=== PATIENT | male | born 1950 | race Caucasian/White ===

== ENCOUNTER 2018-11-22 01:36 | Inpatient (IN) ==
[2018-11-22] MEDS ORDERED: ASPIRIN 325 MG TABLET PO STA (02:14)
[2018-11-22] MEDS ORDERED: ALBUTEROL/IPRATROPIUM 3 ML NEB RESP TX STA (02:16)
[2018-11-22] MEDS ORDERED: methylPREDNISolone SOD SUC 125 MG/2 ML VIAL IV STA (02:16)
[2018-11-22 02:50] LABS: Basophils # 0.1 10*3/uL (0.0-0.2); Basophils % 0.6 % (0.0-0.8); Eosinophils # 0.1 10*3/uL (0.0-0.87); Eosinophils % 1.3 % (0.00-10.9); Hematocrit 46.1 VOL% (42.0-52.0); Hemoglobin 15.3 GM/DL (14.0-18.0); Immature Granulocytes % 0.6 %; Immature Granulocytes Absolute 0.05 #; Lymphocytes # 1.8 10*3/uL (1.4-4.0); Lymphocytes % 23.1 % (21.2-54.2); Mean Corpuscular HGB Conc 33.2 GM/DL (32-36); Mean Corpuscular Hemoglobin 28 PG (27-34); Mean Corpuscular Volume 84.3 FL (87-102); Mean Platelet Volume 10.2 FL (9.6-12.0); Monocytes # 0.6 10*3/uL (0.11-0.8); Monocytes % 8.2 % (1.7-12.7); Neutrophils # 5.2 10*3/uL (1.4-7.4); Neutrophils % 66.2 % (38.7-73.9); Platelet Count 170 T/CUMM (130-400); Red Blood Count 5.47 MC/CUMM (3.8-5.5); Red Cell Distribution Width 14.6 % (9.3-17.3); White Blood Count 7.8 T/CUMM (4-12)
[2018-11-22 03:30] LABS: Alanine Aminotransferase 27 U/L (16-61); Albumin 3.6 G/DL (3.4-5.0); Alkaline Phosphatase 66 U/L (45-117); Aspartate Amino Transferase 22 U/L (0-37); Bilirubin,Total < 0.39 MG/DL (0.2-1.0); Blood Urea Nitrogen 13 MG/DL (7-18); Calcium 8.5 MG/DL (8.5-10.1); Glucose 222 MG/DL (74-106); Osmolality,Calculated 281.7 MOS/KG (273-304); Sodium 138 MMOL/L (136-145); Total Protein 7.4 G/DL (6.4-8.3)
[2018-11-22] MEDS ORDERED: FUROSEMIDE 40 MG/4 ML VIAL IV STA (03:54)
[2018-11-22] MEDS ORDERED: ONDANSETRON 4 MG/2 ML VIAL IV PRN (05:00)
[2018-11-22] MEDS ORDERED: DEXTROSE 50% 25 GM/50 ML VIAL IV PRN (05:00)
[2018-11-22] MEDS ORDERED: ACETAMINOPHEN 325 MG TABLET PO PRN (05:00)
[2018-11-22] MEDS ORDERED: ALBUTEROL 2.5 MG/3 ML NEB RESP TX PRN (05:00)
[2018-11-22] MEDS ORDERED: GLUCAGON 1 MG VIAL IM PRN (05:00)
[2018-11-22] MEDS: INSULIN REGULAR 100 UNIT/ML SUBCUT SCH ×4 (07:20→20:47)
[2018-11-22 07:55] LABS: Risk Ratio 5.3
[2018-11-22] MEDS: ALBUTEROL/IPRATROPIUM 3 ML NEB RESP TX SCH ×3 (07:57→19:00)
[2018-11-22] MEDS ORDERED: methylPREDNISolone SOD SUC 40 MG/1 ML VIAL IV SCH (08:30)
[2018-11-22] MEDS: ENOXAPARIN 40 MG/0.4 ML SYRINGE SUBCUT SCH (08:52)
[2018-11-22] MEDS: PANTOPRAZOLE 40 MG TABLET PO SCH (08:58)
[2018-11-22] MEDS ORDERED: predniSONE 20 MG TABLET PO SCH (09:00)
[2018-11-22] MEDS: BUDESONIDE 0.5 MG/2 ML NEB RESP TX SCH ×2 (09:10→19:00)
[2018-11-22] MEDS: BISOPROLOL 5 MG TABLET PO SCH (17:06)
[2018-11-22] MEDS: ISOSORBIDE MONONITRATE 30 MG TABLET PO SCH (17:06)
[2018-11-22] MEDS: metFORMIN 500 MG TABLET PO SCH (17:06)
[2018-11-22] MEDS ORDERED: INFLUENZA VIRUS VACCINE 0.5 ML SYRINGE IM ONE (18:00)
[2018-11-22] MEDS: MONTELUKAST 10 MG TABLET PO SCH (20:47)
[2018-11-23] MEDS: ALBUTEROL/IPRATROPIUM 3 ML NEB RESP TX SCH ×4 (00:29→19:10)
[2018-11-23] MEDS: BUDESONIDE 0.5 MG/2 ML NEB RESP TX SCH ×2 (07:33→19:10)
[2018-11-23] MEDS: INSULIN REGULAR 100 UNIT/ML SUBCUT SCH ×4 (07:44→20:30)
[2018-11-23] MEDS: ASPIRIN EC 81 MG TABLET PO SCH (10:16)
[2018-11-23] MEDS: PANTOPRAZOLE 40 MG TABLET PO SCH (10:16)
[2018-11-23] MEDS: FENOFIBRATE 145 MG TABLET PO SCH (10:16)
[2018-11-23] MEDS: metFORMIN 500 MG TABLET PO SCH ×2 (10:18→16:55)
[2018-11-23] MEDS: BISOPROLOL 5 MG TABLET PO SCH (10:18)
[2018-11-23] MEDS: ISOSORBIDE MONONITRATE 30 MG TABLET PO SCH (10:18)
[2018-11-23] MEDS: ENOXAPARIN 40 MG/0.4 ML SYRINGE SUBCUT SCH (10:19)
[2018-11-23] MEDS: methylPREDNISolone SOD SUC 40 MG/1 ML VIAL IV SCH ×2 (10:20→17:52)
[2018-11-23] MEDS: guaiFENesin/CODEINE 5 ML LIQUID PO PRN ×2 (10:23→20:29)
[2018-11-23] MEDS: ENALAPRIL 2.5 MG TABLET PO SCH (12:55)
[2018-11-23] MEDS: MONTELUKAST 10 MG TABLET PO SCH (20:28)
[2018-11-23] MEDS: SIMVASTATIN 20 MG TABLET PO SCH (20:29)
[2018-11-23] MEDS: ZALEPLON 5 MG CAPSULE PO PRN (20:30)
[2018-11-24] MEDS: ALBUTEROL/IPRATROPIUM 3 ML NEB RESP TX SCH ×5 (00:40→19:33)
[2018-11-24] MEDS: methylPREDNISolone SOD SUC 40 MG/1 ML VIAL IV SCH ×2 (02:14→10:41)
[2018-11-24 06:10] LABS: Basophils % 0.1 % (0.0-0.8); Hematocrit 43.8 VOL% (42.0-52.0); Hemoglobin 14.6 GM/DL (14.0-18.0); Immature Granulocytes % 1.4 %; Immature Granulocytes Absolute 0.11 #; Lymphocytes # 0.5 10*3/uL (1.4-4.0); Lymphocytes % 6.5 % (21.2-54.2); Mean Corpuscular HGB Conc 33.3 GM/DL (32-36); Mean Corpuscular Hemoglobin 28 PG (27-34); Mean Corpuscular Volume 84.1 FL (87-102); Mean Platelet Volume 11.2 FL (9.6-12.0); Monocytes # 0.2 10*3/uL (0.11-0.8); Monocytes % 2.6 % (1.7-12.7); Neutrophils # 6.9 10*3/uL (1.4-7.4); Neutrophils % 89.4 % (38.7-73.9); Platelet Count 181 T/CUMM (130-400); Red Blood Count 5.21 MC/CUMM (3.8-5.5); Red Cell Distribution Width 14.7 % (9.3-17.3); White Blood Count 7.7 T/CUMM (4-12)
[2018-11-24 06:35] LABS: Calcium 8.6 MG/DL (8.5-10.1); Osmolality,Calculated 279.1 MOS/KG (273-304); Potassium 4.2 MMOL/L (3.5-5.1)
[2018-11-24] MEDS: BUDESONIDE 0.5 MG/2 ML NEB RESP TX SCH ×2 (07:20→19:35)
[2018-11-24] MEDS ORDERED: REGADENOSON 0.4 MG/5 ML SYRINGE IV ONE (10:13)
[2018-11-24] MEDS: INSULIN REGULAR 100 UNIT/ML SUBCUT SCH ×4 (10:38→22:05)
[2018-11-24] MEDS: metFORMIN 500 MG TABLET PO SCH (10:39)
[2018-11-24] MEDS: ENOXAPARIN 40 MG/0.4 ML SYRINGE SUBCUT SCH (10:39)
[2018-11-24] MEDS: ENALAPRIL 2.5 MG TABLET PO SCH (10:52)
[2018-11-24] MEDS: BISOPROLOL 5 MG TABLET PO SCH (10:52)
[2018-11-24] MEDS: FENOFIBRATE 145 MG TABLET PO SCH (10:52)
[2018-11-24] MEDS: PANTOPRAZOLE 40 MG TABLET PO SCH (10:52)
[2018-11-24] MEDS: ASPIRIN EC 81 MG TABLET PO SCH (10:53)
[2018-11-24] MEDS: ISOSORBIDE MONONITRATE 30 MG TABLET PO SCH (10:53)
[2018-11-24] MEDS ORDERED: MAGNESIUM SULF RIDER 2 GM in PREMIX 1 EACH IV PRN (12:21)
[2018-11-24] MEDS: SODIUM CHLORIDE 0.9% 1,000 ML IV SCH (12:44)
[2018-11-24] MEDS: guaiFENesin/CODEINE 5 ML LIQUID PO PRN (17:33)
[2018-11-24] MEDS ORDERED: methylPREDNISolone SOD SUC 40 MG/1 ML VIAL IV SCH (21:00)
[2018-11-24] MEDS: MONTELUKAST 10 MG TABLET PO SCH (21:55)
[2018-11-24] MEDS: SIMVASTATIN 20 MG TABLET PO SCH (21:55)
[2018-11-24] MEDS: ZALEPLON 5 MG CAPSULE PO PRN (22:04)
[2018-11-25] MEDS ORDERED: diphenhydrAMINE CAP 25 MG CAPSULE PO ONE (00:01)
[2018-11-25] MEDS: SODIUM CHLORIDE 0.9% 1,000 ML IV SCH ×4 (01:04→20:57)
[2018-11-25] MEDS: ALBUTEROL/IPRATROPIUM 3 ML NEB RESP TX SCH ×5 (01:15→19:16)
[2018-11-25] MEDS ORDERED: DIAZEPAM 5 MG TABLET PO ONE (05:00)
[2018-11-25 05:50] LABS: Basophils % 0.3 % (0.0-0.8); Hematocrit 44.3 VOL% (42.0-52.0); Hemoglobin 14.7 GM/DL (14.0-18.0); Immature Granulocytes % 1.4 %; Immature Granulocytes Absolute 0.18 #; Lymphocytes # 0.5 10*3/uL (1.4-4.0); Lymphocytes % 4.1 % (21.2-54.2); Mean Corpuscular HGB Conc 33.2 GM/DL (32-36); Mean Corpuscular Hemoglobin 28 PG (27-34); Mean Corpuscular Volume 83.1 FL (87-102); Mean Platelet Volume 10.6 FL (9.6-12.0); Monocytes # 0.6 10*3/uL (0.11-0.8); Monocytes % 4.5 % (1.7-12.7); Neutrophils # 11.5 10*3/uL (1.4-7.4); Neutrophils % 89.7 % (38.7-73.9); Platelet Count 202 T/CUMM (130-400); Red Blood Count 5.33 MC/CUMM (3.8-5.5); Red Cell Distribution Width 15.2 % (9.3-17.3); White Blood Count 12.8 T/CUMM (4-12)
[2018-11-25 05:56] LABS: PT Patient Result 10.7 SECS
[2018-11-25 06:10] LABS: Calcium 8.7 MG/DL (8.5-10.1); Osmolality,Calculated 280.1 MOS/KG (273-304); Potassium 4.2 MMOL/L (3.5-5.1)
[2018-11-25 06:17] LABS: Hypochromasia 1+; Lymphocytes 6 % (20-55); Platelet Estimate Adequate; Segmented Neutrophils 91 % (50-85); Total Cells Counted 100
[2018-11-25] MEDS: BUDESONIDE 0.5 MG/2 ML NEB RESP TX SCH ×2 (07:20→19:16)
[2018-11-25] MEDS ORDERED: diphenhydrAMINE CAP 25 MG CAPSULE ONE (07:35)
[2018-11-25] MEDS: PANTOPRAZOLE 40 MG TABLET PO SCH ×2 (07:38→08:57)
[2018-11-25] MEDS: predniSONE 20 MG TABLET PO SCH ×2 (07:38→08:57)
[2018-11-25] MEDS: ASPIRIN EC 81 MG TABLET PO SCH ×2 (07:38→08:57)
[2018-11-25] MEDS: ENALAPRIL 2.5 MG TABLET PO SCH ×2 (07:38→08:57)
[2018-11-25] MEDS: BISOPROLOL 5 MG TABLET PO SCH ×2 (07:38→08:59)
[2018-11-25] MEDS: ISOSORBIDE MONONITRATE 30 MG TABLET PO SCH ×2 (07:38→08:57)
[2018-11-25] MEDS: FENOFIBRATE 145 MG TABLET PO SCH ×2 (07:38→08:57)
[2018-11-25] MEDS: INSULIN REGULAR 100 UNIT/ML SUBCUT SCH ×4 (08:56→20:54)
[2018-11-25] MEDS: ENOXAPARIN 40 MG/0.4 ML SYRINGE SUBCUT SCH (08:57)
[2018-11-25] MEDS ORDERED: HYDROmorphone 2 MG/1 ML VIAL ONE (09:13)
[2018-11-25] MEDS ORDERED: LIDOCAINE 1% 20 ML VIAL ONE (09:13)
[2018-11-25] MEDS ORDERED: HEPARIN/NACL 0.9% 2 UNITS/ML 1,000 ML IV ONE (09:13)
[2018-11-25] MEDS ORDERED: MIDAZOLAM 2 MG/2 ML VIAL ONE (09:13)
[2018-11-25] MEDS ORDERED: BIVALIRUDIN 250 MG VIAL IV ONE (09:46)
[2018-11-25] MEDS ORDERED: LABETALOL 20 MG/4 ML SYRINGE IV ONE (10:18)
[2018-11-25] MEDS ORDERED: TICAGRELOR 90 MG TABLET ONE (10:34)
[2018-11-25] MEDS ORDERED: ALBUTEROL 2.5 MG/3 ML NEB RESP TX ONE (11:23)
[2018-11-25] MEDS: MONTELUKAST 10 MG TABLET PO SCH (20:56)
[2018-11-25] MEDS: TICAGRELOR 90 MG TABLET PO SCH (20:56)
[2018-11-25] MEDS: SIMVASTATIN 20 MG TABLET PO SCH (20:56)
[2018-11-25] MEDS: ZALEPLON 5 MG CAPSULE PO PRN (21:02)
[2018-11-26] MEDS: ALBUTEROL/IPRATROPIUM 3 ML NEB RESP TX SCH ×2 (00:34→07:29)
[2018-11-26 04:40] LABS: Basophils % 0.2 % (0.0-0.8); Eosinophils % 0.1 % (0.00-10.9); Hematocrit 42.6 VOL% (42.0-52.0); Hemoglobin 14.1 GM/DL (14.0-18.0); Immature Granulocytes % 1.2 %; Immature Granulocytes Absolute 0.12 #; Lymphocytes # 1.2 10*3/uL (1.4-4.0); Lymphocytes % 11.9 % (21.2-54.2); Mean Corpuscular HGB Conc 33.1 GM/DL (32-36); Mean Corpuscular Hemoglobin 28 PG (27-34); Mean Corpuscular Volume 83.7 FL (87-102); Mean Platelet Volume 10.7 FL (9.6-12.0); Monocytes # 0.8 10*3/uL (0.11-0.8); Monocytes % 8.1 % (1.7-12.7); Neutrophils % 78.5 % (38.7-73.9); Platelet Count 171 T/CUMM (130-400); Red Blood Count 5.09 MC/CUMM (3.8-5.5); Red Cell Distribution Width 14.9 % (9.3-17.3); White Blood Count 10.1 T/CUMM (4-12)
[2018-11-26 04:56] LABS: CKMB % 9.7 %; Calcium 8.7 MG/DL (8.5-10.1); Osmolality,Calculated 276.5 MOS/KG (273-304); Potassium 3.5 MMOL/L (3.5-5.1)
[2018-11-26 05:08] LABS: Troponin I 6.7 NG/ML (0.00-0.045)
[2018-11-26] MEDS: BUDESONIDE 0.5 MG/2 ML NEB RESP TX SCH (07:35)
[2018-11-26 08:25] VITALS: BP 158/91
[2018-11-26] MEDS: INSULIN REGULAR 100 UNIT/ML SUBCUT SCH ×2 (08:53→12:02)
[2018-11-26] MEDS: ASPIRIN EC 81 MG TABLET PO SCH (09:40)
[2018-11-26] MEDS: FENOFIBRATE 145 MG TABLET PO SCH (09:40)
[2018-11-26] MEDS: predniSONE 20 MG TABLET PO SCH (09:40)
[2018-11-26] MEDS: ENALAPRIL 2.5 MG TABLET PO SCH (09:40)
[2018-11-26] MEDS: BISOPROLOL 5 MG TABLET PO SCH (09:40)
[2018-11-26] MEDS: ISOSORBIDE MONONITRATE 30 MG TABLET PO SCH (09:40)
[2018-11-26] MEDS: PANTOPRAZOLE 40 MG TABLET PO SCH (09:41)
[2018-11-26] MEDS: TICAGRELOR 90 MG TABLET PO SCH (09:41)
[2018-11-26] MEDS: ENOXAPARIN 40 MG/0.4 ML SYRINGE SUBCUT SCH (10:13)
[2018-11-26] MEDS: POTASSIUM CHLORIDE RIDER 10 MEQ in PREMIX 1 EACH IV PRN ×2 (10:57→11:50)
== END 2018-11-26 13:08 | disposition home or self-care (01) | DRG 247 ==
LOC: EDBD → EDUNIT# → SUATTDRO → N.ED 01:36 → N.EDINP 05:00 → N.5E 17:26 → N.TELEN 11-25 12:08
PROVIDERS: ADMIT Internal Medicine; ATTEND Internal Medicine
PROC: CLCCHCL (ICD-10-PCS; 2018-11-25 09:15)